=== PATIENT | female | born 1955 | race Caucasian/White ===

== ENCOUNTER 2022-05-09 13:29 | Outpatient (CLI) | payer MEDICARE | END 2022-05-09 13:30 | disposition home or self-care (01) | LOC: CSHMAMMO 13:29 | PROVIDERS: ATTEND Student in an Organized Health Care Education/Training Program | DX: M81.0 Age-related osteoporosis without current pathological fracture (principal); M85.852 Other specified disorders of bone density and structure, left thigh; Z79.52 Long term (current) use of systemic steroids | CPT/HCPCS: 77080 ==

== ENCOUNTER 2025-06-26 14:25 | Outpatient (CLI) | payer MEDICARE | END 2025-06-26 14:26 | disposition home or self-care (01) | LOC: CSHULT 14:25 | PROVIDERS: ATTEND Family Medicine | DX: R60.0 Localized edema (principal) | CPT/HCPCS: 93306 ==